=== PATIENT | male | born 1955 | race Caucasian/White ===

== ENCOUNTER 2024-03-13 06:15 | Day surgery (SDC) | payer OTHER ==
[~2024-03-13] VITALS: Ht 177.8 cm; Wt 74.6 kg
[~2024-03-13 06:15] MED LIST: LATA.005SO; Lactated Ringer's 1,000 ML IV ONE; TAMS.4ER PO; TIMO.5OPSO
[2024-03-13] MEDS ORDERED: NS 50 ML IV ONE (06:23)
[2024-03-13] MEDS ORDERED: CeFAZolin Sodium 2,000 MG VIAL ONE (06:23)
[2024-03-13] MEDS ORDERED: Lactated Ringer's 1,000 ML IV ONE (07:08)
[2024-03-13] MEDS ORDERED: propofoL 20 ML IV ONE ×2 (07:26→07:49)
[2024-03-13] MEDS ORDERED: Ondansetron HCl 2 MG / ML 2ML Vial ONE (07:26)
[2024-03-13] MEDS ORDERED: Ketorolac Tromethamine 30mg Vial ONE (07:26)
[2024-03-13] MEDS ORDERED: FentaNYL Citrate 50 MCG/ML 2 ML Injection ONE ×2 (07:26→08:27)
[2024-03-13] MEDS ORDERED: Dexamethasone Sod Phos 10 MG/ML 1ML VIAL ONE (07:26)
[2024-03-13] MEDS ORDERED: EPINEPhrine HCl 1 MG/ML 1ML Amp XX ONE (07:56)
--- NOTE | 2024-03-13 08:07 | NUR ---
03/13/24 0807 Eugenia Barrera 1 MG EPI ADDED TO THE FIRST BAG OF LR [facility]
[2024-03-13 09:11] VITALS: BP 116/80
[2024-03-13] MEDS ORDERED: HYDROcodone 5-APAP 325 TAB ONE (09:27)
--- NOTE | 2024-03-13 15:29 | NUR ---
03/13/[address]S OFFICE CONTACTED REGARDING PHYSICAL THERAPY APPOINTMENT. RN WAS TOLD TO CONTACT [facility] AND THAT ORDER HAD BEEN SENT THERE. [facility] INSPECTOR TESTER SORTER DENIED RECIEVING THE ORDER. DR. ORTEGA'S OFFICE WAS CONTACTED AGAIN LATER IN THE DAY. [facility] [facility] PILOT STATED THAT ORDER HAD BEEN FAXED TO [facility] AT 0953, AND THAT DR. ORTEGA'S OFFICE WOULD REACH OUT TO [facility].
== END 2024-03-13 09:45 | disposition home or self-care (01) ==
LOC: ORSCSDS 06:15
PROVIDERS: Orthopaedic Surgery
PROC: 0SBD4ZZ Excision of Left Knee Joint, Percutaneous Endoscopic Approach (ICD-10-PCS; principal; 2024-03-13 07:30)
DX: S83.242A Other tear of medial meniscus, current injury, left knee, initial encounter (principal); S83.282A Other tear of lateral meniscus, current injury, left knee, initial encounter; M17.12 Unilateral primary osteoarthritis, left knee; M23.42 Loose body in knee, left knee; Z87.891 Personal history of nicotine dependence; J44.9 Chronic obstructive pulmonary disease, unspecified; N40.0 Benign prostatic hyperplasia without lower urinary tract symptoms; Z79.899 Other long term (current) drug therapy
CPT/HCPCS: A9270; J0171; J0690; J1100; J1885; J2405; J2704; J3010; J7120

== ENCOUNTER 2025-06-16 05:55 | Emergency (ER) | payer OTHER ==
[~2025-06-16] VITALS: Ht 162.6 cm; Wt 72.6 kg
[~2025-06-16 05:55] MED LIST changes: -Lactated Ringer's 1,000 ML IV ONE
[2025-06-16] MEDS ORDERED: Lidocaine 2% Jelly Uro-Jet UR ONE (06:25)
[2025-06-16 06:57] LABS: Source, Urine Foley catheter
[2025-06-16 07:05] LABS: Bilirubin, Urine Neg (Neg); Color, Urine Yellow (P-Yellow); Glucose Qualitative, Urine Neg (Neg); Ketones, Urine 2+ (Neg); Leukocyte Esterase, Urine Neg (Neg); Protein, Urine 1+ (Neg); Specific Gravity, Urine 1.025 (1.003-1.022); Urobilinogen, Urine NORM (Normal)
[2025-06-16 07:11] LABS: White Blood Cells, Urine 0-2 /hpf (0-5)
[2025-06-16 08:09] VITALS: BP 138/88
== END 2025-06-16 08:12 | disposition home or self-care (01) ==
LOC: ER 05:55
PROVIDERS: Emergency Medicine
DX: R33.9 Retention of urine, unspecified (principal); Z87.448 Personal history of other diseases of urinary system; Z79.899 Other long term (current) drug therapy
CPT/HCPCS: 51702; 51798; 81001

== ENCOUNTER 2025-06-18 15:55 | Emergency (ER) | payer OTHER ==
[~2025-06-18] VITALS: Ht 170.2 cm; Wt 72.6 kg
[2025-06-18 16:14] VITALS: BP 151/87
[2025-06-18 20:37] LABS: Source, Urine Foley catheter
[2025-06-18 20:42] LABS: Bilirubin, Urine Neg (Neg); Color, Urine Yellow (P-Yellow); Glucose Qualitative, Urine Neg (Neg); Ketones, Urine Neg (Neg); Leukocyte Esterase, Urine 1+ (Neg); Protein, Urine 3+ (Neg); Specific Gravity, Urine 1.015 (1.003-1.022); Urobilinogen, Urine NORM (Normal)
[2025-06-18 20:53] LABS: Red Blood Cells, Urine 50-100 /hpf (0-2)
== END 2025-06-18 21:15 | disposition home or self-care (01) ==
LOC: ER 15:55
PROVIDERS: Student in an Organized Health Care Education/Training Program
DX: R31.9 Hematuria, unspecified (principal); Z79.899 Other long term (current) drug therapy
CPT/HCPCS: 81001